=== PATIENT | female | born 1995 | race American Indian/Alaskan Native ===

== ENCOUNTER 2016-09-04 23:18 | Outpatient (CLI) | payer MEDICAID ==
[2016-09-04] MEDS ORDERED: LACTATED RINGERS 500 ML IV ONE (23:20)
[2016-09-04 23:36] VITALS: BP 112/59
[2016-09-05 00:50] LABS: Bilirubin,Urine NEG (Negative); Blood,Urine NEG (Negative); Granular Casts,Urine 9 /LPF; Ketones,Urine NEG (Negative); Leukocyte Esterase,Urine NEG (Negative); Mucus,Urine FEW /HPF; Nitrite,Urine NEG (Negative); Protein,Urine <15 mg/dL mg/dL (Negative); WBC,Urine < 1.0 /HPF (0.0-6.0)
[2016-09-05] MEDS ORDERED: TYLENOL PO ONE (01:20)
[2016-09-05] MEDS ORDERED: ZOFRAN IV ONE (01:20)
== END 2016-09-05 01:50 | disposition home or self-care (01) ==
LOC: TRG 23:18
PROVIDERS: ATTEND Obstetrics & Gynecology
DX: O26.893 Other specified pregnancy related conditions, third trimester (principal); R10.9 Unspecified abdominal pain; Z3A.32 32 weeks gestation of pregnancy; Z87.891 Personal history of nicotine dependence
CPT/HCPCS: 59025; 81001; 82962; 96360; 96374; J2405; J7120